=== PATIENT | female | born 1970 | race Hispanic/Latino ===

== ENCOUNTER 2016-02-27 19:45 | Emergency (ER) | payer OTHER ==
[~2016-02-27] VITALS: Ht 162.6 cm; Wt 113.6 kg
[2016-02-27 19:54] VITALS: BP 138/94; PULSE 87; RESP 18; O2SAT 98
[2016-02-27 20:42] LABS: BASOPHILS % (AUTO) 0.1 % (0-3); EOSINOPHILS % (AUTO) 0.1 % (0-5); MONOCYTES % (AUTO) 4.9 % (4-12); Mean Corpuscular Hemoglobin 25.2 pg (27.0-35.0); Mean Corpuscular Volume 74.3 fL (81-100); NEUTROPHILS % (AUTO) 83.3 % (40-74); Platelet Count 255 bil/L (150-400)
[2016-02-27 21:09] LABS: Magnesium 1.9 mg/dL (1.6-2.6)
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
[2016-02-27] MEDS ORDERED: 0.9% Sodium Chloride 1,000 ML IV ONE (21:20)
[2016-02-27] MEDS ORDERED: Ondansetron 2 mg/mL 2 mL Inj IVPUSH ONE (21:20)
[2016-02-27] MEDS: HYDROmorphone 0.5 mg/0.5 mL iSecure Syringe IVPUSH PRN ×2 (21:30→23:19)
[2016-02-27 22:59] VITALS: BP 133/67; PULSE 78; O2SAT 96
[2016-02-27] MEDS ORDERED: ONDA8TAB10 PO (23:15)
[2016-02-27] MEDS ORDERED: _Ondansetron ODT 4 mg Tablet PO PRN (23:15)
[2016-02-27] MEDS ORDERED: _HYDROcodone/APAP 5-325 mg Tablet PO PRN (23:15)
[2016-02-27 23:30] VITALS: BP 130/70; PULSE 77; O2SAT 94
[2016-02-27 23:36] VITALS: BP 130/70; PULSE 77; O2SAT 94
--- NOTE | 2016-02-28 09:41 | DRSVH ---
PROCEDURE: US ABDOMEN INDICATIONS: RUQ pain ro joao TECHNIQUE: Real-time scanning was performed of the abdominal and retroperitoneal organs, with image documentatio n. COMPARISON: None. FINDINGS: Liver length: 18.12 cm Gallbladder Wall Thickness: 1.70 mm CHD: 4.80 mm CBD: 4.30 mm Spleen length: 11.46 cm Right kidney length: 12.87 cm Left kidney length: 12.83 cm Aorta(Proximal): 2.69 cm Aorta(Mid): 2.16 cm Aorta(Distal): 2.00 cm RCIA: 1.05 cm LCIA: 1.10 cm Liver: The liver is enlarged with overall appearance of steatosis. There are 2 hypoechoic areas along the anterior aspect of the gallbladder. Gallbladder: Gallbladder is unremarkable. Biliary ducts: Intrahepatic bile ducts are non-dilated. Extrahepatic bile duct caliber is normal. Normal is 6-7 mm or less in diameter, or 10 mm or less post-cholecystectomy. Pancreas: Visualized portions of the pancreas are sonographically normal. Spleen: Spleen is normal in size and homogeneous in echotexture. Kidneys: Kidneys are normal in size and echotexture. No hydronephrosis or nephrolithiasis. No mo d masses. Aorta: Visualized aorta is normal in caliber at less than 3 cm. Iliacs: Proximal common iliac arteries are normal in caliber at less than 2.5 cm. IVC: Intrahepatic inferior vena cava is patent. Miscellaneous: No free abdominal fluid. IMPRESSION: 1. Hepatomegaly with steatosis, as well as focal areas of fat sparing adjacent to the gallbladder. Dictated by: Talita Mai M.D. on 02/28/2016 at 9:24 Approved by: Talita Mai M.D. on 02/28/2016 at 9:24
== END 2016-02-28 00:06 | disposition home or self-care (01) ==
LOC: SED 19:45
DX: R10.84 Generalized abdominal pain (principal); R19.7 Diarrhea, unspecified; R11.10 Vomiting, unspecified; R50.9 Fever, unspecified; Z88.2 Allergy status to sulfonamides
CPT/HCPCS: 36415; 76700; 80053; 83690; 83735; 85025; 96361; 96374; 96375; 96376; 99285; J1170; J2405; J7030